=== PATIENT | female | born 1935 | race Hispanic/Latino ===

== ENCOUNTER → 2021-05-13 | Outpatient (CLI) | payer OTHER | END | disposition home or self-care (01) | LOC: RAH 14:21 | PROVIDERS: ATTEND Family Medicine | DX: Z13.6 Encounter for screening for cardiovascular disorders (principal) | CPT/HCPCS: 75571 ==

== ENCOUNTER → 2024-03-27 | Outpatient (CLI) | payer MEDICARE ==
[~2024-03-27] MED LIST: AEC81 PO; ALLO100T PO; AMLO-388 PO; CHOL100040 PO; ERGO500093 PO; FERR-72 PO; FOLI0.8T3 PO; HYDR12.54 PO; IOHEXOL 350 MG/ML 100ML INFUS..BTL IV ONE; LEVO112C4 PO; SIMV-43 PO; [UNRECOGNIZED DRUG - CODE] PO
== END | disposition home or self-care (01) ==
LOC: RAH 08:58
PROVIDERS: ATTEND Internal Medicine
DX: N28.1 Cyst of kidney, acquired (principal); K80.00 Calculus of gallbladder with acute cholecystitis without obstruction; K74.60 Unspecified cirrhosis of liver; R93.2 Abnormal findings on diagnostic imaging of liver and biliary tract
CPT/HCPCS: 74170; Q9967

== ENCOUNTER → 2025-03-04 | Outpatient (CLI) | payer MEDICARE ==
[~2025-03-04] MED LIST changes: -IOHEXOL 350 MG/ML 100ML INFUS..BTL IV ONE; -LEVO112C4 PO; +LEVO112C5 PO; +[UNRECOGNIZED DRUG - CODE] PO; -[UNRECOGNIZED DRUG - CODE] PO
[2025-03-04 14:33] LABS: CREATININE 1.1 mg/dL (0.5-1.0); GLOMERULAR FILTR. RATE CALC 48.0 mL/min (>90); UREA NITROGEN, BLOOD 22.0 mg/dL (7-18)
== END | disposition home or self-care (01) ==
LOC: LAB 12:58
PROVIDERS: ATTEND Internal Medicine
DX: K75.81 Nonalcoholic steatohepatitis (NASH) (principal)
CPT/HCPCS: 36415; 82565; 84520

== ENCOUNTER → 2025-03-08 | Outpatient (CLI) | payer MEDICARE ==
[~2025-03-08] MED LIST changes: +GADOTERATE MEGLUMINE 10 MMOL/20 ML VIAL IV ONE
--- NOTE | 2025-03-09 14:55 | HMCIMG ---
EXAM: MR Abdomen with and without Intravenous Contrast CLINICAL HISTORY: Patient presents for evaluation of abnormal prior imaging. TECHNIQUE: Multisequence, multiplanar magnetic resonance images of the abdomen with and without intravenous contrast. COMPARISON: 03/27/2024. CONTRAST: IV contrast. FINDINGS: LOWER THORAX: No pleural effusion. LIVER: Liver demonstrates nodular cirrhotic marginal contour. There are 3 hyperenhancing nodules in the dome of the liver (image [id number] series [id number]) with the largest measuring 1.2 1.0 cm. These are not clearly seen on the delayed phase images due to respiratory motion and are indeterminant. A CT of the abdomen utilizing liver protocol is recommended. Few simple hepatic cysts in both lobes, largest measuring up to 0.9 cm in segment III. No suspicious hepatic lesions. GALLBLADDER AND BILE DUCTS: Gallbladder is distended with multiple calculi measuring 10???15 mm. No acute pericholecystic inflammation. No biliary ductal dilatation. PANCREAS: Well-defined 0.7 cm T2 hyperintense non-enhancing cystic lesion in the pancreatic body, likely representing a cyst versus side branch intraductal papillary mucinous neoplasm. No pancreatic ductal dilatation. SPLEEN: Mild splenomegaly measuring 13.2 cm. ADRENALS: Stable left adrenal nodule measuring 3.0 x 3.0 x 3.1 cm. 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 KIDNEYS: Bilateral renal cortical cysts, largest measuring 6.1 cm in the right renal upper pole. A 3.5 cm complex left renal lower pole cortical cyst with internal hairline thin septae. Variable renal parenchymal thinning with adjacent mild fat stranding and haziness. No hydronephrosis. STOMACH AND BOWEL: Small hiatus hernia. Uncomplicated colonic diverticula. LYMPH NODES: No lymphadenopathy. VASCULATURE: Portal vein measures 13 mm. Splenic vein measures 7 mm. No abdominal aortic aneurysm. IMPRESSION: Cirrhotic liver morphology with 3 hyperenhancing nodules in the dome of the liver with the largest measuring 1.2 1.0 cm. These are not clearly seen on the delayed phase images due to respiratory motion and are indeterminant. A CT of the abdomen utilizing liver protocol is recommended. Stable small simple hepatic cysts. Mild splenomegaly. Stable cholelithiasis without acute cholecystitis. Pancreatic body cystic lesion (0.7 cm), likely cyst versus side branch intraductal papillary mucinous neoplasm. 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 Bilateral renal stable cortical cysts. Complex left renal cortical cyst containing thin septae - Bosniak-II. No routine follow-up indicated. Variable bilateral renal parenchymal thinning with mild perinephric fat stranding, may represent renal parenchymal disease. Clinical correlation with laboratory parameters is recommended. Small hiatus hernia. Uncomplicated colonic diverticulosis. /Davis
== END | disposition home or self-care (01) ==
LOC: RAH 07:07
PROVIDERS: ATTEND Internal Medicine
DX: K80.20 Calculus of gallbladder without cholecystitis without obstruction (principal); N28.1 Cyst of kidney, acquired; K86.2 Cyst of pancreas; K57.30 Diverticulosis of large intestine without perforation or abscess without bleeding; K44.9 Diaphragmatic hernia without obstruction or gangrene; K76.89 Other specified diseases of liver; K74.60 Unspecified cirrhosis of liver; R16.1 Splenomegaly, not elsewhere classified; R93.2 Abnormal findings on diagnostic imaging of liver and biliary tract
CPT/HCPCS: 74183; A9575